=== PATIENT | female | born 1980 | race Two or more races ===

== ENCOUNTER 2019-12-08 15:44 | Emergency (ER) | payer BC ==
[~2019-12-08] VITALS: Ht 160 cm; Wt 117.9 kg
[~2019-12-08 15:44] MED LIST: Acyclovir PO; BLOO-367 IN; DOCU-141 PO; GABA300C PO; HYDR25SU13 RC; LIDO35.4 TP; METF500T PO; OMEP20TA5 PO; RANI150T8 PO
--- NOTE | 2019-12-08 15:56 | NUR ---
CAME IN FOR R BUTTOCK PAIN. PATIENT STATES SHE FELL 3 DAYS AGO AT A [facility] AND FELL ON HER R BUTTOCK. TO ER BED 10, HOOKED TO MONITOR, CHANGED TO HOSP GOWN, PROVIDED W WARM BLANKET, PATIENT AOx4, BREATHING EVEN AND UNLABORED. AWAITING MD MAYO
--- NOTE | 2019-12-08 16:07 | NUR ---
DR QUINTEROS AT BEDSIDE
--- NOTE | 2019-12-08 16:28 | NUR ---
respiratory support technician at bedside
[2019-12-08] MEDS ORDERED: KETOROLAC TROMETHAMINE INJ 60 MG/2 ML VIAL IM ONE (16:30)
[2019-12-08] MEDS ORDERED: KETOROLAC TROMETHAMINE INJ 30 MG/ML VIAL ONE (16:38)
--- NOTE | 2019-12-08 16:40 | NUR ---
PATIENT SIGNED WAIVER FORM, LMP: 12/02/2019
[2019-12-08 17:31] VITALS: BP 110/72
--- NOTE | 2019-12-08 17:31 | NUR ---
Patient discharged to home in stable condition. Written and verbal after care instructions given. Patient verbalizes understanding of instruction.
== END 2019-12-08 17:32 | disposition home or self-care (01) ==
LOC: ER 15:50
DX: M25.551 Pain in right hip (principal); G62.9 Polyneuropathy, unspecified; F41.9 Anxiety disorder, unspecified; F32.9 Major depressive disorder, single episode, unspecified; D64.9 Anemia, unspecified; Z98.890 Other specified postprocedural states; Z88.6 Allergy status to analgesic agent; Z79.84 Long term (current) use of oral hypoglycemic drugs; Z79.899 Other long term (current) drug therapy; W01.0XXA Fall on same level from slipping, tripping and stumbling without subsequent striking against object, initial encounter; Y93.89 Activity, other specified; Y92.512 Supermarket, store or market as the place of occurrence of the external cause; Y99.8 Other external cause status
CPT/HCPCS: 73502; 96372; 99283; J1885